=== PATIENT | female | born 1990 | race African-American/Black ===

== ENCOUNTER 2017-08-22 09:01 | Outpatient (CLI) ==
[2015-09-25 17:40] VITALS: BMI 23.3
--- NOTE | 2017-08-22 10:24 | CT ---
EXAM: CT Pelvis without contrast. HISTORY: Coccygeal pain. Trauma 1 year prior. Initial presentation. COMPARISON: 09/25/2015. TECHNIQUE: Multiple axial images of the pelvis were obtained without intravenous contrast. Images w ere reformatted in the coronal and sagittal plane. FINDINGS: Please note that evaluation of the pelvic soft tissue structures is limited due to lack of intravenous contrast. Bone mineralization is normal. No acute fracture or dislocation identified. Curvature and alignment of the sacrum and coccyx are normal. Sacroiliac joints are intact. Hip joints are intact. There is diastasis of the rectus abdominus muscles at the level of the umbilicus with protrusion of a bdominal contents in this area. Uterus demonstrates normal contour. Urinary bladder is unremarkable . No free fluid or free air identified. IMPRESSION: No evidence for sacrococcygeal fracture.
== END 2017-08-22 09:02 | disposition home or self-care (01) ==
LOC: RAD 09:01
PROVIDERS: ATTEND Family Medicine
DX: S39.92XD Unspecified injury of lower back, subsequent encounter (principal); M53.3 Sacrococcygeal disorders, not elsewhere classified

== ENCOUNTER 2018-10-27 15:09 | Outpatient (CLI) ==
[2015-09-25 17:40] VITALS: BMI 23.3
== END 2018-10-27 15:10 | disposition home or self-care (01) ==
LOC: RHC-LAB 15:09
PROVIDERS: ATTEND General Practice
DX: J02.9 Acute pharyngitis, unspecified (principal)
CPT/HCPCS: 36415; 80053; 85025; 87651